=== PATIENT | female | born 1970 | race Caucasian/White ===

== ENCOUNTER 2023-12-02 07:57 | Day surgery (SDC) | payer MEDICAID ==
[~2023-12-02] VITALS: Ht 157.5 cm; Wt 74.8 kg
[2023-12-02] MEDS ORDERED: MEPERIDINE 100 MG INJ. 100 MG/ML VIAL ONE (08:07)
[2023-12-02] MEDS ORDERED: MIDAZOLAM HCL 5 MG/5 ML VIAL ONE (08:07)
[2023-12-02 10:00] VITALS: O2SAT 97
[2023-12-02 11:49] VITALS: BP_SYST 138; PULSE 87; RESP 16; TEMP 97.3
== END 2023-12-02 11:20 | disposition home or self-care (01) ==
LOC: SDS 07:57 → SMU 07:58 → SDS 11:20
PROVIDERS: ATTEND Internal Medicine Gastroenterology
DX: K59.09 Other constipation (principal); K57.30 Diverticulosis of large intestine without perforation or abscess without bleeding; K64.8 Other hemorrhoids; K21.9 Gastro-esophageal reflux disease without esophagitis; I10 Essential (primary) hypertension; Z90.710 Acquired absence of both cervix and uterus; Z88.0 Allergy status to penicillin; Z79.899 Other long term (current) drug therapy
CPT/HCPCS: 99152; 45378; G0378; J2250; J2175